=== PATIENT | female | born 1980 | race Two or more races ===

== ENCOUNTER 2016-08-17 07:27 | Emergency (ER) | payer OTHER ==
[2016-08-17 07:43] VITALS: BP 127/100; PULSE 91; RESP 18; TEMP 99; O2SAT 97
[2016-08-17] MEDS ORDERED: BICILLIN L-A 1200000 UNIT/2 ML SYRINGE IM ONE (07:50)
--- NOTE | 2016-08-17 07:55 | UCPHY ---
H & P Patient Type: New Chief Complaint Nursing Narrative: ST x 4 days- had flu like s/s last week better from that - still has ST Time Seen by Provider: 08/17/16 07:45 HPI/ROS: CHIEF COMPLAINT: Sore throat HISTORY OF PRESENT ILLNESS: the patient is a 35-year-old female comes to the Urgent Care complaining of a sore throat for 2 weeks. She is now beginning to notice white spots and is feeling worse. No cough. No fever. No sinus congestion. No significant past medical history. She classifies her Symptoms as moderate. REVIEW OF SYSTEMS: Constitutional: denies: chills, fever, recent illness, recent injury EENTM: See HPI Respiratory: denies: cough, shortness of breath Cardiac: denies: chest pain, irregular heart rate, lightheadedness, palpitations Gastrointestinal/Abdominal: denies: abdominal pain, diarrhea, nausea, vomiting, blood streaked stools Genitourinary: denies: dysuria, frequency, hematuria, pain Musculoskeletal: denies: joint pain, muscle pain Skin: denies: lesions, rash, jaundice, bruising Neurological: denies: headache, numbness, paresthesia, tingling, dizziness, weakness Hematologic/Lymphatic: denies: blood clots, easy bleeding, easy bruising Immunologic/allergic: denies: HIV/AIDS, transplant EXAM: GENERAL: Well-appearing, well-nourished and in no acute distress. HEAD: Atraumatic, normocephalic. EYES: Pupils equal round and reactive to light, extraocular movements intact, sclera anicteric, conjunctiva are normal. ENT: white exudate and erythematous tonsils, tympanic membranes normal, sinuses clear NECK: Normal range of motion, supple without lymphadenopathy or JVD. LUNGS: Breath sounds clear to auscultation bilaterally and equal. No wheezes rales or rhonchi. HEART: Regular rate and rhythm without murmurs, rubs or gallops. ABDOMEN: Soft, nontender, normoactive bowel sounds. No guarding, no rebound. No masses appreciated. BACK: No CVA tenderness, no spinal tenderness, step-offs or deformities EXTREMITIES: Normal range of motion, no pitting or edema. No clubbing or cyanosis. NEUROLOGICAL: Cranial nerves II through XII grossly intact. Normal speech, normal gait. 5/5 strength, normal movement in all extremities, normal sensation PSYCH: Normal mood, normal affect. SKIN: Warm, dry, normal turgor, no visible rashes or lesions. Source: Patient - Personal History LMP (Females 10-55): Now - Medical/Surgical History Hx Asthma: No Hx Chronic Respiratory Disease: No Hx Diabetes: No Hx Cardiac Disease: No Hx Renal Disease: No Hx Cirrhosis: No Hx Alcoholism: No Other PMH: denies - Family History Significant Family History: Hypertension - Social History Smoking Status: Never smoked Alcohol Use: Sober Drug Use: None Constitutional: Initial Vital Signs Temperature (C) 37.2 C 08/17/16 07:41 Heart Rate 91 08/17/16 07:41 Respiratory Rate 18 08/17/16 07:41 Blood Pressure 127/100 H 08/17/16 07:41 O2 Sat (%) 97 08/17/16 07:41 O2 Delivery Mode Room Air Allergies/Adverse Reactions: hydromorphone HCl [From Dilaudid] Allergy (Verified 08/17/16 07:41) Home Medications: Medication Instructions Recorded NK [No Known Home Meds] 08/17/16 Medical Decision Making ED Course/Re-evaluation: the patient clinically has strep throat. I will treat her with antibiotics. Swabs have been sent but reliable results will not return for 24 hours. She would prefer IM injection to pills. She declines further workup or testing at this time. Differential Diagnosis: Partial list of the Differential diagnosis considered include but were not limited to; Strep throat, pharyngitis, cold sore and although unlikely based on the history and physical exam, I also considered sinus infection, meningitis , bronchitis, pneumonia. I discussed these differential diagnoses and the plan with the [patient] as well as the usual and expected course. The [patient understands] that the diagnosis is provisional and that in medicine we are not always correct and that further workup is often warranted. Usual and customary warnings were given. All of the [patient's] questions were answered. The [ patient was] instructed to return to the emergency department should the symptoms at all worsen or return, otherwise to followup with the physician as we discussed. - Data Points Laboratory Results: 08/17/16 08/17/16 Unknown 07:40 Group A Strep Screen NEGATIVE (NEGATIVE) Group A Strep DNA Pending Medications Given: Discontinued Medications Penicillin G Benzathine (Bicillin L-A) 1,200,000 unit IM EDNOW ONE PRN Reason: Protocol Stop: 08/17/16 07:51 Last Admin: 08/17/16 08:03 Dose: 1,200,000 unit Departure - Departure Disposition: Home, Routine, Self-Care Clinical Impression: Strep throat Condition: Fair Instructions: Strep Throat (ED), Penicillin G Benzathine (By injection) Referrals: Branden Cano MD [Primary Care Provider] - As per Instructions - PQRS PQRS Measurement: not applicable
== END 2016-08-17 08:06 | disposition home or self-care (01) ==
LOC: CED 07:27
DX: J02.0 Streptococcal pharyngitis (principal)
CPT/HCPCS: 87880-PO; 96372-PO; 99204-PO; G0463-PO; J0561